=== PATIENT | male | born 1980 | race Caucasian/White ===

== ENCOUNTER 2017-02-05 14:27 | Emergency (ER) | payer OTHER ==
[~2017-02-05 14:27] MED LIST: ABILIFY15 MG; IBUPROFEN600 MG PO; METHADONE HCL10 M1 PO; MOTRIN800 MG PO; PERCOCET 10/31 UDTAB PO; SENNA8.6 M PO; XANAX1 MG PO
[2017-02-05] MEDS ORDERED: CELEXA20 M2 PO (14:51)
[2017-02-05] MEDS ORDERED: RISPERDAL0.5 M2 PO (14:52)
[2017-02-05] MEDS ORDERED: HYDROCODON-ACE1 EA16 PO ×2 (14:53→16:03)
[2017-02-05] MEDS ORDERED: IBUPROFEN200 M2 PO (14:54)
[2017-02-05] MEDS ORDERED: ELIQUIS5 M1 PO (16:03)
== END 2017-02-05 16:24 ==
LOC: EDMED 14:27
DX: I82.4Z1 Acute embolism and thrombosis of unspecified deep veins of right distal lower extremity (principal); F17.210 Nicotine dependence, cigarettes, uncomplicated